=== PATIENT | female | born 1955 | race Caucasian/White ===

== ENCOUNTER → 2016-05-27 | Outpatient (CLI) | payer BC ==
[~2016-05-27] MED LIST: ASPI81TA28 PO; BUTA1CAP18 PEG; CLON0.5T3 PO; DOXY100C76 PO; FRCT/ PO; IMT100 PO; KLN5X PO; PRD/1 PO; PRZ/40 PO; TPM100 PO; TPM25 PO; [UNRECOGNIZED DRUG - OTHER] PO
[2016-05-27 13:24] LABS: BASO ABS # 0.04 K/uL (0-0.2); COMPLETE YES; EOS % 1.4 %; HEMATOCRIT 40.5 % (37-47); IG% 0.2 %; LYMPH % 21.2 %; LYMPH ABS # 0.88 K/uL (1.2-3.4); MEAN CELL VOLUME 88.4 fL (80-100); MEAN CORPUSCULAR HEMOGLOBIN 29.7 pg (25-34); MEAN CORPUSCULAR HGB CONC 33.6 g/dl (32-36); MEAN PLATELET VOLUME 9.7 fL (7.4-10.4); MONO % 3.6 %; NEUT % 72.6 %; PLATELET COUNT 201 K/uL (130-400); RED BLOOD COUNT 4.58 M/uL (4.2-5.4); WHITE BLOOD COUNT 4.16 K/uL (4.8-10.8)
[2016-05-27 13:37] LABS: URINE APPEARANCE CLEAR (CLEAR); URINE BILIRUBIN NEG (NEG); URINE COLOR YELLOW; URINE EPITHELIAL CELL AUTO 0-5 /lpf (0-5); URINE NITRITE NEG (NEG); URINE PH 7.5 (4.5-7.5); URINE SPECIFIC GRAVITY 1.001 (1.000-1.030); UROBILINOGEN NEG (NEG)
[2016-05-27 13:40] LABS: MANUAL MICROSCOPIC REQUIRED? NO; REVIEW REQ? NO
[2016-05-27 13:43] LABS: ALT/SGPT 25 U/L (12-78); AMYLASE 104 U/L (25-115); BLOOD UREA NITROGEN 19 mg/dl (7-18); BUN/CREATININE RATIO 19.3 (10-20); C-REACTIVE PROTEIN < 0.29 mg/dl (0-0.29); CALCIUM 9.4 mg/dl (8.5-10.1); CARBON DIOXIDE 27 mmol/L (21-32); CHLORIDE 106 mmol/L (98-107); CREATININE 0.98 mg/dl (0.60-1.20); GLUCOSE 92 mg/dl (70-99); SODIUM 141 mmol/L (136-145); URIC ACID 3.6 mg/dl (2.6-7.2)
[2016-05-27 13:52] LABS: ALB/GLOB RATIO 1.1 (0.9-2); ALKALINE PHOSPHATASE 51 U/L (45-117); AST/SGOT 20 U/L (15-37); FERRITIN 391.9 ng/ml (8.0-388.0); THYROID STIMULATING HORMONE 0.597 uIu/ml (0.300-4.500)
[2016-06-02 17:22] LABS: ALBUMIN 4.6 G/DL (3.8-4.8); ENDOMYSIAL IGA AB TC 15064 Negative (Negative); GAMMA GLOBULIN 0.9 G/DL (0.8-1.7); GLIADIN DEAMIDATED IgA AB 9 UNITS (<20); GLIADIN DEAMIDATED IgG AB 3 UNITS (<20); IMMUNOFIXATION IGA SERUM 428 MG/DL (81-463); IMMUNOFIXATION IGG SERUM 1016 MG/DL (694-1618); IMMUNOFIXATION IGM SERUM 113 MG/DL (48-271); TOTAL PROTEIN 7.1 G/DL (6.2-8.3)
== END | disposition home or self-care (01) ==
LOC: C.LABBC 12:03
PROVIDERS: ATTEND Internal Medicine Rheumatology
DX: R63.4 Abnormal weight loss (principal); R53.83 Other fatigue; M35.3 Polymyalgia rheumatica; Z79.52 Long term (current) use of systemic steroids; M54.2 Cervicalgia

== ENCOUNTER → 2016-06-27 | Outpatient (CLI) | payer BC | END | disposition home or self-care (01) | LOC: C.LAB1850 13:25 | PROVIDERS: ATTEND Internal Medicine Rheumatology | DX: M35.3 Polymyalgia rheumatica (principal); Z79.52 Long term (current) use of systemic steroids ==

== ENCOUNTER → 2016-07-18 | Outpatient (CLI) | payer BC ==
[2016-07-18 17:13] LABS: BASO ABS # 0.05 K/uL (0-0.2); COMPLETE YES; EOS % 1.2 %; HEMATOCRIT 38.4 % (37-47); IG% 0.2 %; LYMPH % 23.1 %; LYMPH ABS # 1.19 K/uL (1.2-3.4); MEAN CELL VOLUME 87.1 fL (80-100); MEAN CORPUSCULAR HGB CONC 33.3 g/dl (32-36); MEAN PLATELET VOLUME 9.4 fL (7.4-10.4); MONO % 4.3 %; NEUT % 70.2 %; PLATELET COUNT 194 K/uL (130-400); RED BLOOD COUNT 4.41 M/uL (4.2-5.4); WHITE BLOOD COUNT 5.15 K/uL (4.8-10.8)
[2016-07-18 17:23] LABS: BLOOD UREA NITROGEN 17 mg/dl (7-18); BUN/CREATININE RATIO 17.1 (10-20); CARBON DIOXIDE 31 mmol/L (21-32); CHLORIDE 106 mmol/L (98-107); CREATININE 0.99 mg/dl (0.60-1.20); GLUCOSE 111 mg/dl (70-99); POTASSIUM 4.1 mmol/L (3.5-5.1); SODIUM 142 mmol/L (136-145)
[2016-07-18 17:24] LABS: URINE APPEARANCE CLOUDY (CLEAR); URINE BILIRUBIN NEG (NEG); URINE COLOR YELLOW; URINE EPITHELIAL CELL AUTO 0-5 /lpf (0-5); URINE NITRITE NEG (NEG); URINE PH 7.5 (4.5-7.5); URINE SPECIFIC GRAVITY 1.009 (1.000-1.030); UROBILINOGEN NEG (NEG)
[2016-07-18 17:33] LABS: ALB/GLOB RATIO 1.1 (0.9-2); ALKALINE PHOSPHATASE 54 U/L (45-117); ALT/SGPT 26 U/L (12-78); AST/SGOT 17 U/L (15-37); C-REACTIVE PROTEIN < 0.29 mg/dl (0-0.29); FERRITIN 368.1 ng/ml (8.0-388.0); PREALBUMIN 28.2 mg/dl (20-40); THYROID STIMULATING HORMONE 0.674 uIu/ml (0.300-4.500)
[2016-07-18 17:37] LABS: MANUAL MICROSCOPIC REQUIRED? NO; REVIEW REQ? NO
== END | disposition home or self-care (01) ==
LOC: C.LABBC 15:08
DX: R63.4 Abnormal weight loss (principal); M35.3 Polymyalgia rheumatica; Z79.52 Long term (current) use of systemic steroids

== ENCOUNTER → 2016-07-25 | Outpatient (CLI) | payer BC ==
[~2016-07-25] MED LIST changes: +GADAVIST IV PRN
--- NOTE | 2016-07-25 16:57 | DIAGNOSTIC IMAGING REPORT ---
Brain MRI WITH AND WITHOUT CONTRAST HISTORY: ALTERED MENTAL Status, vertigo TECHNIQUE: Multiplanar multisequence MRI of the brain was performed both before and after the intravenous administration of contrast. COMPARISON STUDY: Head CT 12/26/2014. Brain MRI 12/28/2014. FINDINGS: There are no areas of restricted diffusion to suggest acute infarction. The midline structures are intact. The paranasal sinuses are clear. The mastoid air cells are clear. The ventricles and sulci are within normal limits for age. There is no mass, hematoma, midline shift. The major vascular flow-voids at the skull base are well maintained. Postcontrast sequences show no areas of abnormal enhancement. IMPRESSION: No change from the prior studies. No acute intracranial abnormality. Electronically signed by: Anish Jacobs M.D. 07/25/2016 4:55 PM Dictated Date/Time: 07/25/2016 4:50 PM
== END | disposition home or self-care (01) ==
LOC: C.MRI 15:49
DX: R41.82 Altered mental status, unspecified (principal); R42 Dizziness and giddiness

== ENCOUNTER → 2016-08-11 | Outpatient (CLI) | payer BC ==
[~2016-08-11] MED LIST changes: -GADAVIST IV PRN
--- NOTE | 2016-08-12 10:35 | EEG Procedure Note ---
EEG Procedure Note Date of Service Aug 11, 2016. Start / End Times Start Time: 2:34 PM End Time: 2:54 PM Referring Physician Venu Perez History This is a 61-year-old female with vertigo and episodes of altered mental status. EEG for further evaluation of possible seizure etiology. Pertinent home medications include Topamax and Klonopin Home Medication List Scheduled Clonazepam (Clonazepam), 0.25 MG PO QAM Clonazepam (Klonopin), 0.5 MG PO HS Doxycycline Monohydrate (Monodox), 100 MG PO DIRECTED Fluoxetine Hcl (Prozac), 40 MG PO DAILY Prednisone (Prednisone), 1 MG PO DIRECTED Sumatriptan Succinate (Imitrex), 100 MG PO UD Topiramate (Topiramate), 75 MG PO QAM Topiramate (Topiramate), 100 MG PO HS Scheduled PRN Acetamin/Butalbital/Caffeine (Fioricet), 1-2 TAB PO UD PRN for Headache Nhuoqfdfsm-Klanbuyuvjlbr-Arjlt (Fioricet/Codeine), 1-2 CAP PEG UD PRN for severe headache Description This is a 21 electrode EEG with a single channel dedicated to limited EKG. The electrodes were placed in accordance with the International 10-20 system. At the start of the recording the patient was in an awake state. Background was well organized and composed of symmetric mixed alpha and mild excess beta frequencies. There was a symmetric well-formed moderate amplitude 9-10 Hz posterior dominant rhythm that was reactive to eye opening and closure. Hyperventilation was not done. Intermittent photic stimulation at various frequencies produced no abnormalities. Drowsiness was indicated by loss of muscle artifact and slowing of the background rhythm. There was no sleep transients. Interpretation This is a normal awake and drowsy routine EEG. There was no electrographic seizures or epileptiform discharges. Clinical Correlation A normal EEG does not rule out epilepsy if there is a strong clinical suspicion. Mild excess beta frequencies in the background are likely secondary to benzodiazepine use
== END | disposition home or self-care (01) ==
LOC: C.NEUR 14:09
DX: R42 Dizziness and giddiness (principal); R41.82 Altered mental status, unspecified

== ENCOUNTER → 2016-11-04 | Outpatient (CLI) | payer BC ==
[2016-11-04 11:02] LABS: BASO % 1.8 %; BASO ABS # 0.08 K/uL (0-0.2); COMPLETE YES; EOS % 2.4 %; HEMATOCRIT 39.1 % (37-47); IG% 0.2 %; LYMPH % 45.7 %; LYMPH ABS # 2.08 K/uL (1.2-3.4); MEAN CELL VOLUME 89.3 fL (80-100); MEAN CORPUSCULAR HEMOGLOBIN 29.5 pg (25-34); MEAN PLATELET VOLUME 9.4 fL (7.4-10.4); MONO % 4.2 %; NEUT % 45.7 %; PLATELET COUNT 177 K/uL (130-400); RED BLOOD COUNT 4.38 M/uL (4.2-5.4); WHITE BLOOD COUNT 4.55 K/uL (4.8-10.8)
[2016-11-04 11:22] LABS: ALKALINE PHOSPHATASE 57 U/L (45-117); ALT/SGPT 34 U/L (12-78); AST/SGOT 16 U/L (15-37); BLOOD UREA NITROGEN 22 mg/dl (7-18); BUN/CREATININE RATIO 20.4 (10-20); C-REACTIVE PROTEIN < 0.29 mg/dl (0-0.29); CALCIUM 9.2 mg/dl (8.5-10.1); CARBON DIOXIDE 29 mmol/L (21-32); CHLORIDE 108 mmol/L (98-107); GLUCOSE 91 mg/dl (70-99); POTASSIUM 3.5 mmol/L (3.5-5.1); SODIUM 142 mmol/L (136-145)
[2016-11-04 11:23] LABS: ALB/GLOB RATIO 1.2 (0.9-2)
[2016-11-04 11:32] LABS: PREALBUMIN 28.3 mg/dl (20-40)
[2016-11-07 16:19] LABS: ILGF1 Z SCORE FEMALE 0.6 SD (-2.0 - +2.0); INSULIN LIKE GROWTH FACTOR-I 172 ng/mL (41-279)
== END | disposition home or self-care (01) ==
LOC: C.LABBC 08:11
DX: R63.4 Abnormal weight loss (principal); H81.09 Meniere's disease, unspecified ear; M35.3 Polymyalgia rheumatica

== ENCOUNTER → 2016-11-28 | Day surgery (SDC) | payer BC ==
[~2016-11-28] VITALS: Ht 152.4 cm; Wt 39.2 kg
[~2016-11-28] MED LIST changes: +COSYNTROPIN IM SCH; +COSYNTROPIN INJ 0.25 MCG in SYRINGE 4 ML IV SCH
[2016-11-28 08:28] VITALS: BP 93/57; PULSE 63; TEMP 36.5; O2SAT 98; Ht 152.4 cm; Wt 39.2 kg
[2016-11-28 08:56] VITALS: BP 81/42; PULSE 59; TEMP 36.6; O2SAT 98
[2016-11-28 08:58] LABS: BUN/CREATININE RATIO 14.8 (10-20); CALCIUM 9.2 mg/dl (8.5-10.1); CREATININE 1.1 mg/dl (0.60-1.20); POTASSIUM 3.6 mmol/L (3.5-5.1)
[2016-11-28 09:32] VITALS: BP 94/55; PULSE 69; O2SAT 99
== END | disposition home or self-care (01) ==
LOC: C.MTU 07:54
DX: R63.4 Abnormal weight loss (principal)

== ENCOUNTER → 2016-12-25 | Outpatient (CLI) | payer BC ==
[~2016-12-25] MED LIST changes: -COSYNTROPIN IM SCH; -COSYNTROPIN INJ 0.25 MCG in SYRINGE 4 ML IV SCH; -DOXY100C76 PO; -IMT100 PO
== END | disposition home or self-care (01) ==
LOC: C.LABBC 11:33
PROVIDERS: ATTEND Internal Medicine Rheumatology
DX: M35.3 Polymyalgia rheumatica (principal); Z79.52 Long term (current) use of systemic steroids

== ENCOUNTER → 2017-01-15 | Outpatient (CLI) | payer BC | END | disposition home or self-care (01) | LOC: C.MAMM 09:28 | PROVIDERS: ATTEND Internal Medicine Rheumatology | DX: T38.0X1A Poisoning by glucocorticoids and synthetic analogues, accidental (unintentional), initial encounter (principal); M85.88 Other specified disorders of bone density and structure, other site; M85.852 Other specified disorders of bone density and structure, left thigh; M85.851 Other specified disorders of bone density and structure, right thigh ==

== ENCOUNTER → 2017-01-21 | Outpatient (CLI) | payer BC ==
--- NOTE | 2017-01-22 13:52 | MAMMOGRAPHY REPORT ---
BILATERAL DIGITAL SCREENING MAMMOGRAM TOMOSYNTHESIS WITH CAD: 01/21/2017 CLINICAL HISTORY: Routine screening. Patient has no complaints. TECHNIQUE: Breast tomosynthesis in addition to standard 2D mammography was performed. Current study was also evaluated with a Computer Aided Detection (CAD) system. COMPARISON: Comparison is made to exams dated: 10/12/2013 mammogram - [facility] an d 08/22/2008. BREAST COMPOSITION: The tissue of both breasts is extremely dense, which lowers the sensitivity of m ammography. FINDINGS: No suspicious masses, calcifications, or areas of architectural distortion are noted in ei ther breast. There has been no significant interval change compared to prior exams. There is diffuse ly increased density of bilateral breasts, likely related to weight loss as reported by the patient t o the technologist. IMPRESSION: ACR BI-RADS CATEGORY 2: BENIGN There is no mammographic evidence of malignancy. A 1 year screening mammogram is recommended. The pa tient will receive written notification of the results. Approximately 10% of breast cancers are not detected with mammography. A negative mammographic report should not delay biopsy if a clinically suggestive mass is present. Angi Joshi M.D. ah/:01/21/2017 16:55:48 Afterschool: Estephania MORALES(Sujatha)(Bryan)(RUDY), [facility] letter sent: Normal 1/2 BI-RADS Code: ACR BI-RADS Category 2: Benign
== END ==
LOC: C.MAMM 16:29
DX: Z12.31 Encounter for screening mammogram for malignant neoplasm of breast (principal)

== ENCOUNTER → 2017-03-04 | Outpatient (CLI) | payer BC ==
[2017-03-04 17:41] LABS: THYROID STIMULATING HORMONE 1.02 uIu/ml (0.300-4.500)
== END | disposition home or self-care (01) ==
LOC: C.LABBC 13:42
PROVIDERS: ATTEND Internal Medicine Rheumatology
DX: Z79.52 Long term (current) use of systemic steroids (principal); M35.3 Polymyalgia rheumatica; T38.0X1A Poisoning by glucocorticoids and synthetic analogues, accidental (unintentional), initial encounter; R63.4 Abnormal weight loss; M54.12 Radiculopathy, cervical region; M85.80 Other specified disorders of bone density and structure, unspecified site

== ENCOUNTER → 2017-03-06 | Outpatient (CLI) | payer BC | END | disposition home or self-care (01) | LOC: C.LABBC 11:29 | PROVIDERS: ATTEND Internal Medicine Endocrinology, Diabetes & Metabolism | DX: M54.12 Radiculopathy, cervical region (principal); R63.4 Abnormal weight loss; Z79.52 Long term (current) use of systemic steroids ==

== ENCOUNTER → 2017-07-29 | Outpatient (CLI) | payer BC ==
--- NOTE | 2017-07-29 17:26 | DIAGNOSTIC IMAGING REPORT ---
L-SPINE MIN 4 VIEWS ROUTINE CLINICAL HISTORY: Polymyalgia rheumatica. Steroid induced osteopenia. Lower back pain. COMPARISON: None FINDINGS: There is mild dextroscoliosis of the lumbar spine. No fracture or suspicious lesion is evident on this exam. There is mild multilevel disc space narrowing and mild multilevel facet arthrosis. Sacroiliac joints are intact. Bowel gas pattern is normal. IMPRESSION: 1. No lumbar spine fracture. 2. Mild dextroscoliosis of the lumbar spine. 3. Mild multilevel degenerative disc disease and facet arthrosis of the lumbar spine. Electronically signed by: Royal Dominguez M.D. 07/29/2017 5:24 PM Dictated Date/Time: 07/29/2017 5:23 PM
[2017-08-04 22:26] LABS: ALDOLASE** TC 66985R 3 U/L (0.0-8.1); ANA SCREEN TC 249X NEGATIVE (NEGATIVE); ANTI-SS-A <1.0 NEG AI (<1.0 NEG); ANTI-SS-B <1.0 NEG AI (<1.0 NEG); COMPLEMENT C3 TC 44859W 89 MG/DL (90-180); COMPLEMENT C4 TC 44982E 16 MG/DL (16-47); PARVOVIRUS IgM INDEX 0.1 (<0.9)
== END | disposition home or self-care (01) ==
LOC: C.RAD1850 15:46
PROVIDERS: ATTEND Internal Medicine Rheumatology
DX: M41.86 Other forms of scoliosis, lumbar region (principal); M47.816 Spondylosis without myelopathy or radiculopathy, lumbar region; M54.40 Lumbago with sciatica, unspecified side; M35.3 Polymyalgia rheumatica; M79.669 Pain in unspecified lower leg; M85.80 Other specified disorders of bone density and structure, unspecified site